=== PATIENT | female | born 1975 | race Caucasian/White ===

== ENCOUNTER 2017-01-22 06:09 | Day surgery (SDC) | payer OTHER ==
[~2017-01-22 06:09] MED LIST: Buffered Lidocaine 1% SYRIN* 3 ML/SYR SYRINGE INTRADERM ONE; Sodium Citrate/Citric Acid* 15 ML UDC ONE; Sodium Citrate/Citric Acid* 15 ML UDC PO ONE; ceFAZolin 2 GM PREMIX(*) 2 GM/50 ML BAG IVPB ONE
[2017-01-22 06:19] LABS: Manual Entry Verification CAR0052; UR Preg Internal Control QC Line Present; UR Preg Kit Lot# 6030156
[2017-01-22] MEDS ORDERED: Bupivacaine 0.5% SDV PF* 30 ML VIAL ONE (07:09)
[2017-01-22] MEDS ORDERED: Lidocaine 2% PF* 10 ML AMP ONE (07:09)
[2017-01-22] MEDS ORDERED: fentaNYL* 50 MCG/ML 2 ML VIAL (100 MCG VIAL) ONE (07:31)
[2017-01-22] MEDS ORDERED: Ondansetron INJ* 2 MG/ML VIAL IV PRN (08:07)
[2017-01-22] MEDS ORDERED: fentaNYL* 50 MCG/ML 2 ML VIAL (100 MCG VIAL) IV PRN (08:07)
[2017-01-22] MEDS ORDERED: Lidocaine 2% PF * 5 ML VIAL ONE (08:09)
[2017-01-22] MEDS ORDERED: Propofol* 10 MG/ML 20 ML BTL IV PUSH ONE ×2 (08:09→08:10)
[2017-01-22] MEDS ORDERED: oxyCODONE TAB* 5 MG TAB ONE (09:02)
[2017-01-22 09:20] VITALS: BP 131/75
--- NOTE | 2017-01-23 03:23 | OP ---
DATE OF OPERATION: 01/22/17 - [facility] DATE OF : 79 SURGEON: Antwon Jang MD ADVANCED MANUFACTURING ASSOCIATE: Judith Noel PA-C ANESTHESIOLOGIST: Lopez Pineda DO ANESTHESIA: General PRE-OP DIAGNOSIS: Retained painful left ankle syndesmotic screws, one broken screw. POST-OP DIAGNOSIS: Retained painful left ankle syndesmotic screws, one broken screw. OPERATIVE PROCEDURE: Removal of screws and hardware, left ankle. DESCRIPTION OF PROCEDURE: The patient was taken to the operating room, where local anesthetic was administered around the left ankle area, reopened up longitudinally over the distal fibula and located the head of the screw that was intact. This was removed with a small fragment screw driver service technician. Second screw was removed of the head and then over-drilled with the screw removal kit under C -arm guidance. The screw shaft was removed without difficulty. We irrigated the wound after removing the plate with 2-0 Vicryl and 3-0 nylon. A compression dressing was applied. [id number] #: [id number] MTDD
== END 2017-01-22 09:34 | disposition home or self-care (01) ==
LOC: OR 06:09
PROVIDERS: ATTEND Orthopaedic Surgery
DX: T84.84XA Pain due to internal orthopedic prosthetic devices, implants and grafts, initial encounter (principal); Y83.1 Surgical operation with implant of artificial internal device as the cause of abnormal reaction of the patient, or of later complication, without mention of misadventure at the time of the procedure; D68.51 Activated protein C resistance; Z86.718 Personal history of other venous thrombosis and embolism; Z79.01 Long term (current) use of anticoagulants
CPT/HCPCS: 76000; 81025; 88300; A9270-GY; J0690; J2001; J2704; J3010

== ENCOUNTER 2017-08-24 07:27 | Emergency (ER) | payer OTHER ==
[2017-08-24 07:33] VITALS: BP 97/69
--- NOTE | 2017-08-24 07:44 | UC ---
Ear Complaint HPI - HPI Summary HPI Summary: 41 year old female with no significant pmhx here with for plugged ear since this morning. No ear pain. Reports hearing loss. No discharge. No prior symptoms like this before. - History of Current Complaint Stated Complaint: PLUGGED EAR Hx Last Menstrual Period: IUD Onset/Duration: Sudden Onset Severity Initially: Moderate Associated Signs/Symptoms: Positive: Hearing Loss - Allergies/Home Medications Allergies/Adverse Reactions: Allergies Allergy/AdvReac Type Severity Reaction Status Date / Time No Known Allergies Allergy Verified 08/24/17 07:33 PMH/Surg Hx/FS Hx/Imm Hx - Surgical History Surgical History: Yes Surgery Procedure, Year, and Place: X2. LEFT ANKLE SURGERY-08/21/2016 - Social History Alcohol Use: Weekly Alcohol Amount: 7-9 PER DRINKS Substance Use Type: None Smoking Status (MU): Never Smoked Tobacco - Immunization History Most Recent Influenza Vaccination: Not UTD Review of Systems Constitutional: Negative Skin: Negative Eyes: Negative ENT: Negative, Other - right ear plugged Respiratory: Negative Cardiovascular: Negative Gastrointestinal: Negative Genitourinary: Negative Motor: Negative Neurovascular: Negative Musculoskeletal: Negative Neurological: Negative Psychological: Negative All Other Systems Reviewed And Are Negative: Yes Physical Exam Triage Information Reviewed: Yes Appearance: Well-Appearing, No Pain Distress Vital Signs: Initial Vital Signs Temp 36.0 C 08/24/17 07:29 Pulse 79 08/24/17 07:29 Resp 16 08/24/17 07:29 BP 97/69 08/24/17 07:29 Pulse Ox 98 08/24/17 07:29 ENT Exam: Normal ENT: Positive: Other - right ear with complete plug of canal with cerumen Respiratory: Positive: Chest non-tender Cardiovascular: Positive: RRR Psychological Exam: Normal Ear Complaint Course/Dx - Course Course Of Treatment: Cerumen impaction - Differential Dx/Diagnosis Provider Diagnoses: Cerumen impaction. Since cerumen was soft, no irrigation needed. It was removed with the wax remover manually. Complete relief of symptoms. Discharge - Discharge Plan Condition: Good Disposition: HOME Prescriptions: Carbamide Peroxide 6.5% OTIC* [DEBROX 6.5% Otic*] 5 drop RIGHT EAR BID #1 bottle Patient Education Materials: Cerumen Impaction (ED) Referrals: Juarez Damon NP [Primary Care Provider] -
== END 2017-08-24 07:56 | disposition home or self-care (01) ==
LOC: UCEAST 07:27
DX: H61.21 Impacted cerumen, right ear (principal)
CPT/HCPCS: 99211; G0463

== ENCOUNTER 2018-07-31 07:26 | Emergency (ER) | payer OTHER ==
[2018-07-31 07:37] VITALS: BP 146/78
--- NOTE | 2018-07-31 08:33 | UC ---
Lower Extremity/Ankle HPI - HPI Summary HPI Summary: Slipped off a stair yesterday afternoon and rolled her right ankle. Has swelling and bruising laterally. Is able to weight-bear but with some discomfort. Patient requesting x-ray. - History of Current Complaint Chief Complaint: UCLowerExtremity Stated Complaint: R ANKLE INJURY Time Seen by Provider: 07/31/18 07:40 Hx Obtained From: Patient Hx Last Menstrual Period: iud Onset/Duration: Sudden Onset, Lasting Days - 1 DAY, Still Present Severity Initially: Moderate Severity Currently: Moderate Pain Intensity: 3 Pain Scale Used: 0-10 Numeric Aggravating Factor(s): Standing, Ambulation Alleviating Factor(s): Rest, Elevation Able to Bear Weight: Yes - Allergies/Home Medications Allergies/Adverse Reactions: Allergies Allergy/AdvReac Type Severity Reaction Status Date / Time No Known Allergies Allergy Verified 07/22/18 14:48 PMH/Surg Hx/FS Hx/Imm Hx Previously Healthy: Yes - Surgical History Surgical History: Yes Surgery Procedure, Year, and Place: X2. LEFT ANKLE SURGERY-08/21/2016 - Family History Known Family History: Negative: Hypertension - Social History Alcohol Use: Weekly Alcohol Amount: 7-9 PER DRINKS Substance Use Type: None Smoking Status (MU): Never Smoked Tobacco - Immunization History Most Recent Influenza Vaccination: Not UTD Review of Systems Constitutional: Negative Skin: Bruising Respiratory: Negative Cardiovascular: Negative Gastrointestinal: Negative Musculoskeletal: Arthralgia, Decreased ROM, Edema All Other Systems Reviewed And Are Negative: Yes Physical Exam Triage Information Reviewed: Yes Appearance: Well-Appearing, No Pain Distress, Well-Nourished Vital Signs: Initial Vital Signs Temp 98.7 F 07/31/18 07:31 Pulse 66 07/31/18 07:31 Resp 16 07/31/18 07:31 BP 146/78 07/31/18 07:31 Pulse Ox 98 07/31/18 07:31 Vital Signs Reviewed: Yes Eyes: Positive: Conjunctiva Clear ENT: Positive: Hearing grossly normal Neck: Positive: Supple Respiratory: Positive: No respiratory distress, No accessory muscle use Cardiovascular: Positive: Pulses Normal Abdomen Description: Positive: Soft Musculoskeletal: Positive: ROM Limited @ - RIGHT ANKLE, Edema @ - RIGHT ANKLE, Other: - TTP RIGHT ANKLE LATERALLY Neurological: Positive: Alert Psychological: Positive: Age Appropriate Behavior Skin: Positive: Other - BRUISING RIGHT FOOT LATERALLY. Negative: rashes Lower Extremity Course/Dx - Differential Dx/Diagnosis Provider Diagnoses: RIGHT ANKLE SPRAIN Discharge - Sign-Out/Discharge Documenting (check all that apply): Patient Departure All imaging exams completed and their final reports reviewed: Yes - Discharge Plan Condition: Stable Disposition: HOME Patient Education Materials: Ankle Sprain (ED) Referrals: Johanna Waddell NP [Primary Care Provider] - If Needed Additional Instructions: XRAY TODAY NEGATIVE FOR FRACTURE OR DISLOCATION ON MY INITIAL INTERPRETATION. WE WILL CALL YOU IF THE RADIOLOGY READ DIFFERS. YOUR SYMPTOMS SHOULD IMPROVE SIGNIFICANTLY OVER THE NEXT 1-2 WEEKS. IF YOU DO NOT IMPROVE EXPECTED FOLLOW- UP WITH YOUR PCP. YOU MAY BENEFIT FROM REPEAT IMAGING AT THAT TIME. OTC IBUPROFEN OR ALEVE NEEDED FOR DISCOMFORT. REST, ICE, COMPRESS, ELEVATE. LIA WRAP AND GEL SPLINT NEEDED FOR SYMPTOM RELIEF. USE YOUR CRUTCHES TO HELP WITH MOBILITY IF NEEDED. - Billing Disposition and Condition Condition: STABLE Disposition: Home
== END 2018-07-31 08:52 | disposition home or self-care (01) ==
LOC: UCEAST 07:26
DX: S93.401A Sprain of unspecified ligament of right ankle, initial encounter (principal); X50.1XXA Overexertion from prolonged static or awkward postures, initial encounter; Y92.9 Unspecified place or not applicable
CPT/HCPCS: 99213; G0463